=== PATIENT | female | born 1980 | race American Indian/Alaskan Native ===

== ENCOUNTER 2019-04-01 08:36 | Emergency (ER) | payer MEDICAID ==
[2019-04-01 08:45] VITALS: BP 150/94
--- NOTE | 2019-04-01 08:49 | EDM.PDOC ---
ED HPI GENERAL MEDICAL PROBLEM - General Chief Complaint: Upper Extremity Injury/Pain Stated Complaint: LEFT ARM TINGLY Time Seen by Provider: 04/01/19 08:47 Source of Information: Reports: Patient, Old Records, RN, RN Notes Reviewed History Limitations: Reports: No Limitations - History of Present Illness INITIAL COMMENTS - FREE TEXT/NARRATIVE: Pt presents to ER from home by POV with c/o tingling and some pains that radiate from the left neck to the left shoulder blade, left collar bone, and down the left arm to the thumb. She denies injury or numbness or motor weakness. Pt states that she was seen in clinic on 03/30/19 and was diagnosed with a ganglion cyst at the left wrist/hand, and was told to wear a brace on left hand. She states that she started wearing it, but now has developed tingling on the left side of her neck down her left arm. She states that the tingling started at 0515HRS this morning when she woke up. She currently is not wearing brace to left hand. Pt now recalls that she has had similar tingling to the left arm before, and was seen here in 2014 for it. She did not f/u in clinic for the tingling because it comes and goes, and she has long periods where it does not bother her , so she forgot to go have it evaluated. Onset: Today Onset Date: 04/01/19 Onset Time: 05:15 Duration: Constant Location: Reports: Upper Extremity, Left Quality: Reports: Other (Tingling) Severity: Moderate Improves with: Reports: None Worsens with: Reports: None Left Arm Pain Score (Numeric/FACES): 8 - Related Data Allergies Allergy/AdvReac Type Severity Reaction Status Date / Time Penicillins Allergy Rash Verified 04/01/19 08:45 Home Meds: Home Meds . [No Known Home Meds] 04/23/15 [History] Past Medical History - Past Health History Medical/Surgical History: Denies Medical/Surgical History Musculoskeletal History: Reports: Neck Pain, Chronic Endocrine/Metabolic History: Reports: Obesity/BMI 30+ - Infectious Disease History Infectious Disease History: Reports: Chicken Pox Social & Family History - Family History Psychiatric: Reports: Depression Endocrine/Metabolic: Reports: Diabetes, Type I, Diabetes, type II, Other (See Below) Other Endocrine/Metabolic Family History: mother had diabetes - Living Situation & Occupation Living situation: Reports: with Family Review of Systems - Review of Systems Review Of Systems: ROS reveals no pertinent complaints other than HPI. ED EXAM, GENERAL - Physical Exam Exam: See Below Exam Limited By: No Limitations General Appearance: Alert, WD/WN, No Apparent Distress, Obese Eye Exam: Bilateral Eye: Normal Inspection Nose: Normal Inspection Throat/Mouth: Normal Inspection, Normal Voice, No Airway Compromise Head: Atraumatic, Normocephalic Neck: Supple, Non-Tender, Full Range of Motion, Tender Lateral (left > right, with paraspinal muscle spasms). No: Lymphadenopathy (L), Lymphadenopathy (R), Tender Midline Respiratory/Chest: No Respiratory Distress Cardiovascular: Normal Peripheral Pulses Peripheral Pulses: 3+: Radial (L), Radial (R) Back Exam: Normal Inspection Extremities: Normal Range of Motion, Non-Tender, No Pedal Edema, Normal Capillary Refill, Other (I do not find a palpable ganglion cyst on the left wrist or hand.) Neurological: Alert, Oriented, CN II-XII Intact, Normal Cognition, Normal Gait, No Motor/Sensory Deficits Psychiatric: Normal Affect, Normal Mood Skin Exam: Warm, Dry, Intact, Normal Color, No Rash Course - Vital Signs Last Recorded V/S: Last Vital Signs Temp 36.7 C 04/01/19 08:41 Pulse 86 04/01/19 08:41 Resp 18 04/01/19 08:41 BP 150/94 H 04/01/19 08:41 Pulse Ox 96 04/01/19 08:41 - Orders/Labs/Meds Orders: Active Orders 24 hr Category Date Time Status Cervical Spine 2V or 3V [CR] Urgent Exams 04/01/19 08:55 Ordered - Radiology Interpretation Free Text/Narrative:: XR C-spine: no fractures, some straightening of the cervical lordotic curvature , see Rad. report. Departure - Departure Time of Disposition: 09:12 Disposition: Home, Self-Care 01 Condition: Good Clinical Impression: Left cervical radiculopathy - Discharge Information *PRESCRIPTION DRUG MONITORING PROGRAM REVIEWED*: No *COPY OF PRESCRIPTION DRUG MONITORING REPORT IN PATIENT BALWINDER: No Instructions: Cervical Radiculopathy, [id number] Forms: ED Department Discharge Additional Instructions: Rx: Dexamethasone 4mg Rx: Cyclobenzaprine 10mg *Do not drive or work while under the influence of this medication. Follow up in clinic next week for recheck with your doctor. - My Orders Last 24 Hours: My Active Orders 04/01/19 08:55 Cervical Spine 2V or 3V [CR] Urgent - Assessment/Plan Last 24 Hours: My Active Orders 04/01/19 08:55 Cervical Spine 2V or 3V [CR] Urgent
--- NOTE | 2019-04-01 10:58 | CR ---
CLINICAL HISTORY: 38-year-old female neck pain radiating to the left arm and hand. (AP lateral views) INTERPRETATION: Homogeneous normal density of the 7 cervical vertebra. Normal height, alignment and no intervertebral disc space narrowing. No sign of prevertebral soft tissue swelling, cervical fracture, spondylolisthesis or abnormal intervertebral disc space narrowing. No cervical rib anomalies. Lung apices clear. CONCLUSION: Negative plain cervical spine exam. *If clinical radiculopathy persists suggest unenhanced MRI would be the next best diagnostic modality to consider.
== END 2019-04-01 09:20 | disposition home or self-care (01) ==
LOC: DL.ED 08:36
DX: M54.12 Radiculopathy, cervical region (principal); Z88.0 Allergy status to penicillin
CPT/HCPCS: 72040; 99284-25

== ENCOUNTER 2019-04-08 20:19 | Emergency (ER) | payer MEDICAID ==
[2019-04-08] MEDS ORDERED: Sodium Chloride 0.9% 1,000 ML IV ONE (22:15)
[2019-04-08 22:48] LABS: ANION GAP 13.9; CHLORIDE,CL 101 mmol/L (101-111); SODIUM,NA 134 mmol/L (135-145)
--- NOTE | 2019-04-08 23:01 | EDM.PDOC ---
"ED HPI GENERAL MEDICAL PROBLEM - General Chief Complaint: Abdominal Pain Stated Complaint: RIGHT SIDE OF STMACH HURTING- HARD TO BREATHE Time Seen by Provider: 04/08/19 22:30 Source of Information: Reports: Patient History Limitations: Reports: No Limitations - History of Present Illness INITIAL COMMENTS - FREE TEXT/NARRATIVE: c/o sever RLQ pain starting this am, has had right flank pain for one month. Tried Ibuprofen for back and helped but did not help RLQ pain. No nausea or vomiting. Unsure if fever but has been cold all day. LMP last day 3 days ago, normal cycle. No pain or burning with urination. Right Lower Abdomen Pain Score (Numeric/FACES): 7 - Related Data Allergies Allergy/AdvReac Type Severity Reaction Status Date / Time Penicillins Allergy Rash Verified 04/01/19 08:45 Home Meds: Home Meds Etodolac 400 mg PO BID PRN 04/08/19 [History] Past Medical History - Past Health History Medical/Surgical History: Denies Medical/Surgical History Musculoskeletal History: Reports: Neck Pain, Chronic Endocrine/Metabolic History: Reports: Obesity/BMI 30+ - Infectious Disease History Infectious Disease History: Reports: Chicken Pox Social & Family History - Family History Psychiatric: Reports: Depression Endocrine/Metabolic: Reports: Diabetes, Type I, Diabetes, type II, Other (See Below) Other Endocrine/Metabolic Family History: mother had diabetes - Living Situation & Occupation Living situation: Reports: with Family ED ROS GENERAL - Review of Systems Review Of Systems: ROS reveals no pertinent complaints other than HPI. ED EXAM, GI/ABD - Physical Exam Exam: See Below Exam Limited By: No Limitations General Appearance: Alert, Moderate Distress Eyes: Bilateral: Abnormal EOM Ears: Normal External Exam, Normal TMs Nose: Normal Inspection Throat/Mouth: Normal Inspection Head: Atraumatic Neck: Full Range of Motion Respiratory/Chest: No Respiratory Distress, Lungs Clear, Normal Breath Sounds Cardiovascular: Normal Peripheral Pulses, Regular Rate, Rhythm GI/Abdominal Exam: Soft, Rebound, Tender (RLQ), Other (Obese abdomen). No: No Distention, Guarding Back Exam: CVA Tenderness (R) Extremities: Normal Inspection Neurological: Alert, Oriented Skin Exam: Warm, Dry, Intact, Normal Color Course - Vital Signs Last Recorded V/S: Last Vital Signs Temp 100.0 F 04/08/19 20:40 Pulse 106 H 04/08/19 20:40 Resp 16 04/08/19 20:40 BP 119/74 04/08/19 20:40 Pulse Ox 99 04/08/19 20:40 - Orders/Labs/Meds Orders: Active Orders 24 hr Category Date Time Status CULTURE URINE [RM] Stat Lab 04/08/19 21:30 Received cefTRIAXone [Rocephin] 2 gm Med 04/08/19 23:58 Active Sodium Chloride 0.9% [Normal Saline] 100 ml IV ONETIME Medication Orders Ceftriaxone Sodium 2 gm/ (Sodium Chloride) 100 mls @ 200 mls/hr IV ONETIME ONE Stop: 04/09/19 00:27 Last Admin: 04/09/19 00:09 Dose: 200 mls/hr Labs: Laboratory Tests 04/08/19 04/08/19 04/08/19 Range/Units 21:30 21:30 22:23 WBC 14.0 H (5.0-10.0) 10^3/uL RBC 4.50 (4.2-5.4) 10^6/uL Hgb 13.8 (12.0-16.0) g/dL Hct 40.8 (37.0-47.0) % MCV 90.7 (80-100) fL MCH 30.7 (27.0-34.0) pg MCHC 33.8 (33.0-35.0) g/dL Plt Count 122 L (150-450) 10^3/uL Neut % (Auto) 69.8 (42.2-75.2) % Lymph % (Auto) 18.2 L (20.5-50.1) % [place] % (Auto) 11.3 H (2-8) % Eos % (Auto) 0.6 L (1.0-3.0) % Baso % (Auto) 0.1 (0.0-1.0) % Sodium (135-145) mmol/L Potassium (3.6-5.0) mmol/L Chloride (101-111) mmol/L Carbon Dioxide (21.0-31.0) mmol/L Anion Gap BUN (7-18) mg/dL Creatinine (0.6-1.3) mg/dL Est Cr Clr Drug Dosing mL/min Estimated GFR (MDRD) BUN/Creatinine Ratio Glucose (74-105) mg/dL Lactic Acid (0.5-2.2) mmol/L Calcium (8.4-10.2) mg/dl Total Bilirubin (0.2-1.0) mg/dL AST (10-42) IU/L ALT (10-60) IU/L Alkaline Phosphatase (42-121) IU/L Total Protein (6.7-8.2) g/dl Albumin (3.2-5.5) g/dl Globulin Albumin/Globulin Ratio Urine Color Yellow (YELLOW) Urine Appearance Slightly cloudy (CLEAR) Urine pH 6.0 (5.0-9.0) Ur Specific T[place] 1.015 (1.005-1.030) Urine Protein Trace H (NEGATIVE) Urine Glucose (UA) Negative (NEGATIVE) Urine Ketones Negative (NEGATIVE) Urine Occult Blood Small H (NEGATIVE) Urine Nitrite Negative (NEGATIVE) Urine Bilirubin Large H (NEGATIVE) Urine Urobilinogen 1.0 (0.2-1.0) mg/dL Ur Leukocyte Esterase Small H (NEGATIVE) Urine RBC 20-30 H /HPF Urine WBC 75-100 H (0-5/HPF) /HPF Ur Epithelial Cells Moderate H (NOT SEEN) /HPF Amorphous Sediment Few (NOT SEEN) /HPF Urine Bacteria Many H (0-FEW/HPF) /HPF Urine Mucus Few H (NOT SEEN) /LPF Urine HCG, Qual Negative 04/08/19 04/08/19 Range/Units 22:23 22:23 WBC (5.0-10.0) 10^3/uL RBC (4.2-5.4) 10^6/uL Hgb (12.0-16.0) g/dL Hct (37.0-47.0) % MCV (80-100) fL MCH (27.0-34.0) pg MCHC (33.0-35.0) g/dL Plt Count (150-450) 10^3/uL Neut % (Auto) (42.2-75.2) % Lymph % (Auto) (20.5-50.1) % [place] % (Auto) (2-8) % Eos % (Auto) (1.0-3.0) % Baso % (Auto) (0.0-1.0) % Sodium 134 L (135-145) mmol/L Potassium 3.9 (3.6-5.0) mmol/L Chloride 101 (101-111) mmol/L Carbon Dioxide 23.0 (21.0-31.0) mmol/L Anion Gap 13.9 BUN 14 (7-18) mg/dL Creatinine 0.9 (0.6-1.3) mg/dL Est Cr Clr Drug Dosing 71.48 mL/min Estimated GFR (MDRD) > 60 BUN/Creatinine Ratio 15.55 Glucose 124 H (74-105) mg/dL Lactic Acid 1.2 (0.5-2.2) mmol/L Calcium 9.0 (8.4-10.2) mg/dl Total Bilirubin 1.0 (0.2-1.0) mg/dL AST 49 H (10-42) IU/L ALT 55 (10-60) IU/L Alkaline Phosphatase 91 (42-121) IU/L Total Protein 7.3 (6.7-8.2) g/dl Albumin 3.3 (3.2-5.5) g/dl Globulin 4.0 Albumin/Globulin Ratio 0.83 Urine Color (YELLOW) Urine Appearance (CLEAR) Urine pH (5.0-9.0) Ur Specific [place] (1.005-1.030) Urine Protein (NEGATIVE) Urine Glucose (UA) (NEGATIVE) Urine Ketones (NEGATIVE) Urine Occult Blood (NEGATIVE) Urine Nitrite (NEGATIVE) Urine Bilirubin (NEGATIVE) Urine Urobilinogen (0.2-1.0) mg/dL Ur Leukocyte Esterase (NEGATIVE) Urine RBC /HPF Urine WBC (0-5/HPF) /HPF Ur Epithelial Cells (NOT SEEN) /HPF Amorphous Sediment (NOT SEEN) /HPF Urine Bacteria (0-FEW/HPF) /HPF Urine Mucus (NOT SEEN) /LPF Urine HCG, Qual Meds: Medications Generic Name Dose Route Start Last Admin Trade Name Freq PRN Reason Stop Dose Admin Ceftriaxone Sodium 2 gm/ 100 mls @ 200 mls/hr 04/08/19 23:58 04/09/19 00:09 Sodium Chloride IV 04/09/19 00:27 200 mls/hr ONETIME ONE Administration Discontinued Medications Generic Name Dose Route Start Last Admin Trade Name Freq PRN Reason Stop Dose Admin Ceftriaxone Sodium Confirm 04/09/19 00:06 04/09/19 00:09 Rocephin Administered 04/09/19 00:07 Not Given Dose 2 gm .ROUTE .STK-MED ONE Fentanyl 50 mcg 04/08/19 23:05 04/08/19 23:12 Sublimaze IVPUSH 04/08/19 23:06 50 mcg ONETIME ONE Administration Sodium Chloride 1,000 mls @ 999 mls/hr 04/08/19 22:15 04/08/19 22:38 Normal Saline IV 04/08/19 23:15 999 mls/hr .BOLUS ONE Administration Iopamidol 100 ml 04/08/19 23:03 04/08/19 23:36 Isovue-300 (61%) IVPUSH 04/08/19 23:04 Not Given ONETIME ONE Iopamidol 25 ml 04/08/19 23:04 04/08/19 23:36 Isovue-300 (61%) IVPUSH 04/08/19 23:05 Not Given ONETIME ONE Iopamidol 75 ml 04/08/19 23:37 04/08/19 23:39 Isovue-300 (61%) IVPUSH 04/08/19 23:38 75 ml ONETIME ONE Administration Iopamidol 50 ml 04/08/19 23:37 04/08/19 23:39 Isovue-300 (61%) IVPUSH 04/08/19 23:38 50 ml ONETIME ONE Administration - Radiology Interpretation Free Text/Narrative:: [facility] Final Radiology Report Call: [phone] assistance Online chat: [email or web address] [facility] Name: BRIANNE HOGUE Age: 38Years F Date: 04/08/2019 SSN: -- : [id number] Study: CT ABDOMEN/PELVIS W Requesting Physician: VEDA GARCIAS Images: [id number] Addl Studies: Provided Clinical History: Contrast: With Contrast Medium: Iso 300 Contrast Amount: 125 mL Contrast Method: R Hand 20g Page 1 of 2 EXAM: CT Abdomen and Pelvis With Contrast EXAM DATE/TIME: 04/08/2019 11:20 PM CLINICAL HISTORY: 38 years old, female; Abdominal pain; Localized; Right lower quadrant (rlq); Patient HX: Rlq pain, fever, wbc - 14 TECHNIQUE: Imaging protocol: Axial computed tomography images of the abdomen and pelvis with intravenous contrast. Coronal and sagittal reformatted images were created and reviewed. Radiation optimization: All CT scans at this facility use at least one of these dose optimization techniques: automated exposure control; mA and/or kV adjustment per patient size (includes targeted exams where dose is matched to clinical indication); or iterative reconstruction. Contrast material: ISO 300; Contrast volume: 125 ml; Contrast route: R HAND 20G; COMPARISON: No relevant prior studies available. FINDINGS: Lungs: There are no suspicious pulmonary nodules or areas of lung consolidation. ABDOMEN: Liver: There is moderate fatty liver replacement. Gallbladder and bile ducts: No calcified gallstones. No ductal dilation. Pancreas: The pancreatic parenchyma is normal in bulk and sharply marginated. Duct is not dilated. No calcifications, masses, or abnormal fluid collections. Spleen: Normal. No splenomegaly. BRIANNE HOGUE | Final Radiology Report CONFIDENTIALITY STATEMENT This report is intended only for use by the referring physician, and only in accordance with law. If you received this in error, call [phone]. Page 2 of 2 Adrenals: There are no adrenal masses. Kidneys and ureters: Localized perinephric stranding along the inferolateral aspect of the right kidney. Normal left kidney. No hydronephrosis. No stone. Stomach and bowel: No significant abnormalities of the stomach. There are no dilated or thickened small bowel loops. Gas and stool of appropriate quantities are seen in the colon. No mass. Appendix: The appendix is seen. It is normal. PELVIS: Bladder: There is no bladder wall thickening, mass, or calculus. Reproductive: The uterus and ovaries are within normal limits. There are no adenexal masses. ABDOMEN and PELVIS: Intraperitoneal space: There is no pneumoperitoneum, abscess, ascites or mass. Bones/joints: There are no suspicious lytic or osteosclerotic lesions. There are no vertebral compression fractures. Soft tissues: Unremarkable. Vasculature: Normal. No abdominal aortic aneurysm. Lymph nodes: There are no enlarged celiac, mesenteric, periportal, extraperitoneal or inguinal lymph nodes. IMPRESSION: Findings are suspicious for right pyelonephritis. Thank you for allowing us to Departure - Departure Time of Disposition: 00:23 Disposition: Home, Self-Care 01 Condition: Good Clinical Impression: Pyelonephritis - Discharge Information *PRESCRIPTION DRUG MONITORING PROGRAM REVIEWED*: No *COPY OF PRESCRIPTION DRUG MONITORING REPORT IN PATIENT BALWINDER: No Instructions: Pyelonephritis, Adult, [id number] Forms: ED Department Discharge Additional Instructions: increase fluid tylenol 650mg every 4 hours as needed for discomfrot cipro 500mg one twice daily for one week follow up clinic on Saturday for recheck - My Orders Last 24 Hours: My Active Orders 04/08/19 21:30 CULTURE URINE [RM] Stat 04/08/19 23:58 cefTRIAXone [Rocephin] 2 gm Sodium Chloride 0.9% [Normal Saline] 100 ml IV ONETIME - Assessment/Plan Last 24 Hours: My Active Orders 04/08/19 21:30 CULTURE URINE [RM] Stat 04/08/19 23:58 cefTRIAXone [Rocephin] 2 gm Sodium Chloride 0.9% [Normal Saline] 100 ml IV ONETIME"
[2019-04-08] MEDS ORDERED: Iopamidol 612 MG/ML 100 ML Bottle IVPUSH ONE (23:03)
[2019-04-08] MEDS ORDERED: Iopamidol 612 MG/ML 50 ML SDV IVPUSH ONE ×2 (23:04→23:37)
[2019-04-08] MEDS ORDERED: fentaNYL 100 MCG/2 ML SDV IVPUSH ONE (23:05)
[2019-04-08] MEDS ORDERED: Iopamidol 612 MG/ML 75 ML Bottle IVPUSH ONE (23:37)
[2019-04-08] MEDS ORDERED: cefTRIAXone 2 GM in Sodium Chloride 0.9% 100 ML IV ONE (23:58)
[2019-04-09] MEDS ORDERED: cefTRIAXone 1 GM Vial ONE (00:06)
[2019-04-09 00:45] VITALS: BP 145/68; PULSE 89
== END 2019-04-09 00:35 | disposition home or self-care (01) ==
LOC: DL.ED 20:19
DX: N12 Tubulo-interstitial nephritis, not specified as acute or chronic (principal); Z88.0 Allergy status to penicillin; Z79.899 Other long term (current) drug therapy
CPT/HCPCS: 36415; 74177; 80053; 81001; 81025; 83605; 85025; 87086; 87088; 87186; 96361; 96365; 96375; 99284; J0696; J3010; J7030; J7050; Q9967

== ENCOUNTER 2020-11-22 14:11 | Emergency (ER) | payer MEDICAID ==
[2020-11-22 14:20] VITALS: BP 141/81; PULSE 110
--- NOTE | 2020-11-22 14:48 | EDM.PDOC ---
ED HPI GENERAL MEDICAL PROBLEM - General Stated Complaint: FELL HURT RIGHT ANKLE Time Seen by Provider: 11/22/20 14:25 Source of Information: Reports: Patient, RN, RN Notes Reviewed History Limitations: Reports: No Limitations - History of Present Illness INITIAL COMMENTS - FREE TEXT/NARRATIVE: Patient presents to the ED via personal vehicle with complaints of injury to her right ankle. The patient reports she tripped down the outside steps of her home while hauling out her [place] tree at approximately 1000 today. She notes her ankle internally rotated during this fall and was pinned under her for a moment. She does attest to a history of ankle sprain in this extremity, but denies fracture of the leg, ankle, or foot. She denies loss of motor or sensory function to the extremity. She states she has attempted to keep the ankle elevated and has taken Ibuprofen 400mg x1 without significant alleviation of the pain. Right Ankle Pain Score (Numeric/FACES): 10 - Related Data Allergies Allergy/AdvReac Type Severity Reaction Status Date / Time Penicillins Allergy Rash Verified 11/22/20 14:20 Home Meds: Home Meds . [No Known Home Meds] 11/22/20 [History] Past Medical History - Past Health History Medical/Surgical History: Denies Medical/Surgical History Musculoskeletal History: Reports: Neck Pain, Chronic Endocrine/Metabolic History: Reports: Obesity/BMI 30+ - Infectious Disease History Infectious Disease History: Reports: Chicken Pox Social & Family History - Family History Family Medical History: No Pertinent Family History Psychiatric: Reports: Depression Endocrine/Metabolic: Reports: Diabetes, Type I, Diabetes, type II, Other (See Below) Other Endocrine/Metabolic Family History: mother had diabetes - Tobacco Use Tobacco Use Status *Q: Never Tobacco User Second Hand Smoke Exposure: No - Caffeine Use Caffeine Use: Reports: Soda - Recreational Drug Use Recreational Drug Use: No - Living Situation & Occupation Living situation: Reports: with Family Review of Systems - Review of Systems Review Of Systems: Comprehensive ROS is negative, except as noted in HPI. ED EXAM, GENERAL - Physical Exam Exam: See Below Exam Limited By: No Limitations General Appearance: Alert, WD/WN, No Apparent Distress Throat/Mouth: Normal Voice, No Airway Compromise Peripheral Pulses: 2+: Radial (L), Radial (R), Dorsalis Pedis (L), Dorsalis Pedis (R) Extremities: Normal Capillary Refill, Joint Swelling (To right lateral ankle), Leg Pain (To right lateral ankle), Limited Range of Motion (Dorsi flexion and plantar flexion painful and limited), Increased Warmth (To right lateral ankle). No: Non-Tender, Mottled, Pallor, Redness Neurological: Alert, Oriented, CN II-XII Intact, Normal Cognition, No Motor/Sensory Deficits, Abnormal Gait (Patient states pain with ambulation) Psychiatric: Normal Affect, Normal Mood Skin Exam: Warm, Dry, Intact, Ecchymosis (To right lateral ankle), Erythema, Wound/Incision. No: Mottled, Pallor, Petechiae, Rash Course - Vital Signs Last Recorded V/S: Last Vital Signs Temp 97.5 F 11/22/20 14:15 Pulse 110 H 11/22/20 14:15 Resp 18 11/22/20 14:15 BP 141/81 H 11/22/20 14:15 Pulse Ox 97 11/22/20 14:15 - Re-Assessments/Exams Free Text/Narrative Re-Assessment/Exam: 11/22/20 Xray unremarkable for fracture or dislocation. Compression wrap applied for comfort. Patient educated on supportive cares, including red flag signs and symptoms which would warrant reevaluation. Patient verbalized understanding and agreement with the plan of care. Departure - Departure Time of Disposition: 15:03 Disposition: Home, Self-Care 01 Condition: Good Clinical Impression: Sprain of ankle, right Qualifiers: Encounter type: initial encounter Involved ligament of ankle: unspecified ligament Qualified Code(s): S93.401A - Sprain of unspecified ligament of right ankle, initial encounter - Discharge Information *PRESCRIPTION DRUG MONITORING PROGRAM REVIEWED*: Not Applicable *COPY OF PRESCRIPTION DRUG MONITORING REPORT IN PATIENT BALWINDER: Not Applicable Instructions: Ankle Sprain, [id number] Additional Instructions: 1.) Continue to apply ice to the affected area and keep the ankle elevated when you are at rest. 2.) Continue to passively move the ankle to avoid stiffness; continue walking as much as possible. 3.) You may take acetaminophen (Tylenol) 1000mg every six hours, as pain persists. You may take ibuprofen (Advil/Motrin) 800mg every six hours, as pain persists, for the next three days. You may stagger these medications so you are taking a dose of medicine every three hours. 4.) Drink plenty of fluids to stay hydrated. 5.) Compression wrap may be taken off and retightened, as needed. 6.) Follow up with your primary care provider, or return to the emergency department with any loss of motor or sensory function to the ankle/foot, or significant pain that persists past 7 days. Sepsis Event Note (ED) - Evaluation Sepsis Screening Result: No Definite Risk - Focused Exam Vital Signs: Vital Signs Temp Pulse Resp BP Pulse Ox 11/22/20 14:15 97.5 F 110 H 18 141/81 H 97
--- NOTE | 2020-11-22 14:53 | CR ---
EXAMINATION: Foot Comp Min 3V Rt SEX: Female AGE: 39 years CLINICAL HISTORY: 39-year-old female injured in fall (pain/swelling and bruising, especially over the talus). Interpretation: (3 views) 1. Soft tissue swelling. 2. Bone spurs arising off the dorsal aspect of the talus anteriorly and calcaneus posteriorly, around the tibiotalar joint. Dense reactive sclerosis talocalcaneal joint. 3. No sign of right foot fracture or dislocation. 4. No foreign bodies. 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 No foot fracture or dislocation.
== END 2020-11-22 15:15 | disposition home or self-care (01) ==
LOC: DL.ED 14:11
DX: S93.401A Sprain of unspecified ligament of right ankle, initial encounter (principal); E66.9 Obesity, unspecified; Z68.43 Body mass index [BMI] 50.0-59.9, adult; Z88.0 Allergy status to penicillin; X50.1XXA Overexertion from prolonged static or awkward postures, initial encounter; Y92.009 Unspecified place in unspecified non-institutional (private) residence as the place of occurrence of the external cause
CPT/HCPCS: 73630-RT; 99283-25

== ENCOUNTER 2021-10-13 21:38 | Emergency (ER) | payer MEDICAID ==
[2021-10-13 21:56] VITALS: BP 155/95; PULSE 90
--- NOTE | 2021-10-13 22:52 | EDM.PDOC ---
ED HPI GENERAL MEDICAL PROBLEM - General Chief Complaint: ENT Problem Stated Complaint: RIGHT EYE SOEMTHING WRONG. Time Seen by Provider: 10/13/21 22:47 Source of Information: Reports: Patient History Limitations: Reports: No Limitations - History of Present Illness INITIAL COMMENTS - FREE TEXT/NARRATIVE: 40 y/o F c/o eye problem after rubbing her eye really hard this evening. Pt states she was at rest and rubbed her eye really hard and then noticed it looked really swollen. No pain. Denies other injury, vision prob, eye drainage, fever, cough, chills, drugs, etoh. - Related Data Allergies Allergy/AdvReac Type Severity Reaction Status Date / Time Penicillins Allergy Rash Verified 10/13/21 21:55 Home Meds: Home Meds . [No Known Home Meds] 11/22/20 [History] Past Medical History - Past Health History Medical/Surgical History: Denies Medical/Surgical History Musculoskeletal History: Reports: Neck Pain, Chronic Endocrine/Metabolic History: Reports: Obesity/BMI 30+ - Infectious Disease History Infectious Disease History: Reports: Chicken Pox Social & Family History - Family History Family Medical History: No Pertinent Family History Psychiatric: Reports: Depression Endocrine/Metabolic: Reports: Diabetes, Type I, Diabetes, type II, Other (See Below) Other Endocrine/Metabolic Family History: mother had diabetes - Tobacco Use Tobacco Use Status *Q: Never Tobacco User - Caffeine Use Caffeine Use: Reports: Soda - Recreational Drug Use Recreational Drug Use: No - Living Situation & Occupation Living situation: Reports: with Family ED ROS ENT - Review of Systems Review Of Systems: Comprehensive ROS is negative, except as noted in HPI. ED EXAM, ENT - Physical Exam Exam: See Below Exam Limited By: No Limitations General Appearance: Alert, No Apparent Distress Eye Exam: Bilateral Eye: PERRL, Other (scleral edema R lower eye. ) Nose: Normal Inspection, Normal Mucousa, No Blood Mouth/Throat: Normal Inspection, Normal Gums, Normal Lips, Normal Oropharynx, Normal Teeth Respiratory/Chest: No Respiratory Distress, Lungs Clear, Normal Breath Sounds, No Accessory Muscle Use, Chest Non-Tender Cardiovascular: Normal Peripheral Pulses, Regular Rate, Rhythm, No Edema, No Gallop, No JVD, No Murmur, No Rub Course - Vital Signs Last Recorded V/S: Last Vital Signs Temp 97.6 F 10/13/21 21:55 Pulse 90 10/13/21 21:55 Resp 16 10/13/21 21:55 BP 155/95 H 10/13/21 21:55 Pulse Ox 96 10/13/21 21:55 - Orders/Labs/Meds Meds: Medications Discontinued Medications Generic Name Dose Route Start Last Admin Trade Name Isaiah PRN Reason Stop Dose Admin Polymyxin/Trimethoprim Sulfate 1 ml 10/13/21 22:56 Polymyxin B/Trimethoprim 10 Ml Bottle EYERT 10/13/21 22:57 ONETIME ONE - Re-Assessments/Exams Free Text/Narrative Re-Assessment/Exam: 10/13/21 22:52 The pt has scleral edema secondary to trauma to the lower eye from excessive rubbing of the eye. Given the amount of swelling I with cover her with an ophthalmic antibiotic. 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 If any new symptoms or concerns develop contact your primary care facility or return to the ER. Sepsis Event Note (ED) - Evaluation Sepsis Screening Result: No Definite Risk - Focused Exam Vital Signs: Vital Signs Temp Pulse Resp BP Pulse Ox 10/13/21 21:55 97.6 F 90 16 155/95 H 96
[2021-10-13] MEDS ORDERED: Polymyxin B/Trimethoprim 10 ML Bottle EYERT ONE (22:56)
[2021-10-13] MEDS ORDERED: Polymyxin B/Trimethoprim 10 ML Bottle ONE (23:00)
== END 2021-10-13 23:09 | disposition home or self-care (01) ==
LOC: DL.ED 21:38
DX: H15.001 Unspecified scleritis, right eye (principal); E66.9 Obesity, unspecified; Z68.43 Body mass index [BMI] 50.0-59.9, adult; Z88.0 Allergy status to penicillin
CPT/HCPCS: 99283; A9270-GY